=== PATIENT | male | born 1965 | race Caucasian/White ===

== ENCOUNTER 2016-06-29 05:13 | Inpatient (IN) | payer OTHER ==
[2016-06-06 11:50] VITALS: BMI 42.0
--- NOTE | 2016-06-06 12:18 | PAT Medication Instructions ---
Service Date Jun 06, 2016. Current Home Medication List Allopurinol (Zyloprim), 300 MG PO HS Amlodipine/Benazepril (Lotrel 5MG/20MG), 2 CAP PO QAM Calcium Carbonate (Tums), 2 TAB PO UD PRN for Indigestion Hydrochlorothiazide (Hctz), 50 MG PO QAM Hydrocodone/Acetaminophen 5MG/325MG ([place] 5MG/325MG), 1 TABLET PO Q4 PRN for Pain Multivitamin (Multivitamin), 1 TAB PO QAM Pravastatin (Pravachol ), 20 MG PO HS Medication Instructions For Your Scheduled Surgery - Hold the following medications the morning of surgery: Calcium Carbonate (Tums), 2 TAB PO UD PRN for Indigestion Amlodipine/Benazepril (Lotrel 5MG/20MG), 2 CAP PO QAM Multivitamin (Multivitamin), 1 TAB PO QAM Hydrochlorothiazide (Hctz), 50 MG PO QAM - Take the following medications the morning of surgery with a sip of water OTHERWISE NOTHING TO EAT OR DRINK AFTER MIDNIGHT: Hydrocodone/Acetaminophen 5MG/325MG ([place] 5MG/325MG), 1 TABLET PO Q4 PRN for Pain (may take if needed up to 4 hours prior to surgery) - Take the following medications as scheduled the night before surgery: Pravastatin (Pravachol ), 20 MG PO HS Allopurinol (Zyloprim), 300 MG PO HS If you have any questions please call us at [phone] (Natasha Nguyen PA-C ) or [phone] or [phone]
[2016-06-06 12:39] LABS: URINE APPEARANCE CLEAR (CLEAR); URINE BILIRUBIN NEG (NEG); URINE COLOR YELLOW; URINE NITRITE NEG (NEG); URINE PH 7.5 (4.5-7.5); URINE SPECIFIC GRAVITY 1.008 (1.000-1.030); UROBILINOGEN NEG (NEG)
[2016-06-06 12:39] LABS: BASO % 2.1 %; BASO ABS # 0.15 K/uL (0-0.2); COMPLETE YES; EOS % 5.1 %; HEMATOCRIT 44.9 % (42-52); LYMPH % 42.2 %; LYMPH ABS # 2.98 K/uL (1.2-3.4); MEAN CELL VOLUME 83.9 fL (80-100); MEAN CORPUSCULAR HEMOGLOBIN 31.6 pg (25-34); MEAN CORPUSCULAR HGB CONC 37.6 g/dl (32-36); MEAN PLATELET VOLUME 10.1 fL (7.4-10.4); MONO % 7.4 %; NEUT % 43.2 %; PLATELET COUNT 186 K/uL (130-400); RED BLOOD COUNT 5.35 M/uL (4.7-6.1); WHITE BLOOD COUNT 7.06 K/uL (4.8-10.8)
[2016-06-06 12:50] LABS: MANUAL MICROSCOPIC REQUIRED? NO; REVIEW REQ? NO
--- NOTE | 2016-06-06 13:09 | DIAGNOSTIC IMAGING REPORT ---
CHEST PREADMISSION(PA/LAT) HISTORY: Preop. COMPARISON: None. FINDINGS: No pleural effusions. No pneumothorax. The right lung is clear. The heart is top normal in size. There are low lung volumes. A few small linear densities at the left lung base favor subsegmental atelectasis or scarring. Otherwise, the left lung is clear. IMPRESSION: No acute process. Electronically signed by: Dao Lama M.D. 06/06/2016 1:08 PM
[2016-06-06 13:20] LABS: BUN/CREATININE RATIO 12.3 (10-20); POTASSIUM 3.2 mmol/L (3.5-5.1)
[2016-06-06 13:27] LABS: CALCIUM 9.9 mg/dl (8.5-10.1)
--- NOTE | 2016-06-23 09:29 | HISTORY & PHYSICAL EXAMINATION ---
DATE OF ADMISSION: 06/29/2016 The patient presents to our office with complaint of left leg pain including buttock pain. He states this stems from an incident in December of 2015. He has been working on restricted duty since. Takes Vicodin for pain control. Symptoms are reproduced with prolonged activity, such as standing and walking. He states modest activity such as doing the dishes will also reproduces his symptoms. He has numbness extending to the lesser toes on the left. Right leg is asymptomatic. Denies bowel or bladder dysfunction. MEDICAL HISTORY: Significant for gout, hyperlipidemia, hypertension, and liver disease. SURGICAL HISTORY: Significant for cholecystectomy, hernia repair and microdiscectomy of June 2005. ALLERGIES: INCLUDE DARVOCET. MEDICATIONS: Currently include Vicodin 5/325 one or two tablets a day, hydrochlorothiazide 50 mg a day, Norvasc 5 mg two tablets a day, benazepril 20 mg twice a day, Pravastatin 40 mg a day, allopurinol 300 mg a day, cyclobenzaprine 5 mg p.r.n., and multivitamin. SOCIAL HISTORY: The patient is . Denies alcohol. Former smoker, quit in 2008, used to smoke a pack and half prior to this. 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 FAMILY HISTORY: Significant for hypertension and high cholesterol. REVIEW OF SYSTEMS: Significant for weight gain, difficulty walking. PHYSICAL EXAMINATION: VITAL SIGNS: 5 foot 10, 290 pounds. HEENT: Speech appropriate. CARDIOPULMONARY: No gross abnormalities. ABDOMEN: Soft, nondistended. GENITOURINARY: Deferred. NEUROLOGIC: Cranial nerves II-XII grossly intact. MUSCULOSKELETAL: He has a well-healed lumbar incision. He is tender to palpation over the left sciatic notch. Strength is intact bilateral lower extremities. Sensation is intact bilaterally. ASSESSMENT: Retrolisthesis of L5-S1. Disc space collapse at L5-S1. PLAN: At this point in time, he has tried and failed conservative therapy. May consider surgical intervention which would require revision decompression, fusion L5-S1. Risks, benefits, pros, cons, and alternatives were outlined in detail. The patient would like to proceed with the above-mentioned surgical intervention.
[2016-06-29] VITALS (10 sets, daily range): BP systolic 117–170; BP diastolic 73–83; PULSE 90–113; TEMP 36.5–37.1; O2SAT 92–96; Ht 177.8 cm; Wt 133.4 kg
[~2016-06-29] VITALS: Ht 177.8 cm; Wt 133.4 kg
[~2016-06-29 05:13] MED LIST: ALLO300T2 PO; AMLO5CAP2 PO; CALC500C3 PO; HYDR-5688 PO; HYDR50TA3 PO; MULT-506 PO; PRAV20TA PO
[2016-06-29] MEDS ORDERED: SCOPOLAMINE 1.5 MG TDSY TD SCH (06:00)
[2016-06-29] MEDS ORDERED: LACTATED RINGER'S 1000ML IV SCH (06:00)
[2016-06-29] MEDS ORDERED: CEFAZOLIN 3000 MG/65 ML D5W 65 ML IV SCH (06:00)
[2016-06-29] MEDS ORDERED: PROPOFOL IV EMULSION 10 MG/ML 20 ML VIAL IV ONE ×2 (06:49→09:20)
[2016-06-29] MEDS ORDERED: ONDANSETRON INJ 2 MG/ML 2 ML VIAL ONE (06:49)
[2016-06-29] MEDS ORDERED: DEXAMETHASONE SOD INJ 4 MG/ML VIAL ONE (06:49)
[2016-06-29] MEDS ORDERED: LIDOCAINE HCL 2% 2 ML VIAL (20MG/ML) ONE (06:49)
[2016-06-29] MEDS ORDERED: FENTANYL CITRATE INJ 50 MCG/1 ML 2 ML VIAL ONE (06:49)
[2016-06-29] MEDS ORDERED: MIDAZOLAM HCL 1 MG/ML 2ML VIAL ONE (06:49)
[2016-06-29] MEDS ORDERED: NEOSTIGMINE METHYLSULFATE 1 MG/ML 10ML VIAL ONE (06:49)
[2016-06-29] MEDS ORDERED: GLYCOPYRROLATE INJ 0.2 MG/ML VIAL ONE (06:49)
[2016-06-29] MEDS ORDERED: ROCURONIUM BROMIDE 10 MG/ML 5 ML VIAL ONE ×2 (06:49→08:43)
[2016-06-29] MEDS: POTASSIUM CHLR 10MEQ / WTR IV SCH ×2 (07:23→08:30)
[2016-06-29] MEDS ORDERED: EpHEDrine SULFATE INJ 50 MG/ML AMP IV PRN (07:30)
[2016-06-29] MEDS ORDERED: ATROPINE SULFATE 0.1 MG/ML 5ML SYR IV PRN (07:30)
[2016-06-29] MEDS ORDERED: ONDANSETRON INJ 2 MG/ML 2 ML VIAL IV PRN ×2 (07:30→09:45)
[2016-06-29] MEDS ORDERED: HYDROmorphone INJ 2 MG/ML SYR/VIAL IV PRN (07:30)
[2016-06-29] MEDS ORDERED: PHENYLEPHRINE 100MCG/ML 5ML SYR IV PRN (07:30)
--- NOTE | 2016-06-29 07:35 | History & Physical Bridge Note ---
H&P Re-Evaluation Bridge Note: I have examined the patient, reviewed the History & Physical and in the interval since the performance of the History & Physical I have noted the following changes of clinical significance: No changes noted
[2016-06-29] MEDS ORDERED: HYDROmorphone INJ 2 MG/ML SYR/VIAL ONE (08:04)
[2016-06-29] MEDS ORDERED: PHENYLEPHRINE 100MCG/ML 5ML SYR ONE (08:43)
[2016-06-29] MEDS ORDERED: EpHEDrine SULFATE 50MG/5ML SYR ONE (08:43)
[2016-06-29] MEDS ORDERED: BISACODYL 10 MG SUPP PR PRN (09:00)
[2016-06-29] MEDS ORDERED: FAMOTIDINE 20 MG TAB PO PRN (09:00)
[2016-06-29] MEDS ORDERED: MAGNESIUM HYDROXIDE SUSP 30 ML UDC PO PRN (09:00)
[2016-06-29] MEDS ORDERED: BUPIVACAINE/EPINEPHRINE 0.5% MPF 1:200,000 30 ML VIAL INJ ONE (09:42)
[2016-06-29] MEDS ORDERED: FLOSEAL HEMOSTATIC MATRIX 10ML TOP ONE (09:42)
[2016-06-29] MEDS ORDERED: BACITRACIN 50000 UNIT VIAL IR ONE (09:42)
[2016-06-29] MEDS ORDERED: ESMOLOL HCL 10 MG/ML 10 ML VIAL ONE (09:44)
[2016-06-29] MEDS ORDERED: SODIUM CHLORIDE 0.9% 1000ML 1,000 ML IV SCH (09:44)
--- NOTE | 2016-06-29 09:44 | [facility] Post Operative Brief Note ---
Immediate Operative Summary Operative Date Jun 29, 2016. Pre-Operative Diagnosis Retrolisthesis of L5-S1 Disc Space Collapse at L5-S1 Post-Operative Diagnosis Retrolisthesis of L5-S1 Disc Space Collapse at L5-S1 Procedure(s) Performed L5-S1 Lumbar Laminectomy, Decompression; Pedicle Screw Fixation; Placement of Interbody Device, Posterolateral Fusion; Application of Allograft; Bone Morphogenetic Protein; Iliac [place] Fixation Surgeon Dr. Joe Murphy Manager Environmental Health And Safety Surgeon(s) Bridgett Wyatt PA-C Estimated Blood Loss 250 Findings stenosis Specimens None per surgeon
[2016-06-29] MEDS ORDERED: DO NOT ADMINISTER FLU VACCINE PRN ×3 (09:45)
[2016-06-29] MEDS ORDERED: LORAZEPAM INJ 0.5 MG in SYRINGE 0 ML IV PRN (09:45)
[2016-06-29] MEDS ORDERED: LORAZEPAM 0.5 MG TAB PO PRN (09:45)
[2016-06-29] MEDS ORDERED: hydrOXYzine HCL 25 MG TAB PO PRN (09:45)
[2016-06-29] MEDS ORDERED: DO NOT ADMINISTER PNEUMOCOCCAL VACCINE PRN ×2 (09:45)
[2016-06-29] MEDS ORDERED: METOCLOPRAMIDE HCL INJ 5 MG/ML 2 ML VIAL IV PRN (09:45)
[2016-06-29] MEDS ORDERED: ACETAMINOPHEN 500 MG TAB PO PRN (09:45)
[2016-06-29] MEDS ORDERED: ALUMINUM/MAGNESIUM SUSP 30 ML UDC PO PRN (09:45)
[2016-06-29] MEDS ORDERED: ACETAMINOPHEN IV 100 ML IV PRN (09:45)
[2016-06-29] MEDS ORDERED: HYDROmorphone INJ 0.5 MG/0.5 ML SYR IV PRN (09:45)
[2016-06-29] MEDS ORDERED: SOD PHOSPHATE/SOD BIPHOSPHATE ENEMA 132 ML BTL PR PRN (09:45)
[2016-06-29] MEDS ORDERED: DC PCA PRN (09:45)
[2016-06-29] MEDS ORDERED: NALOXONE HCL 0.4 MG/1 ML VIAL/CARP IV PRN ×2 (09:45)
[2016-06-29] MEDS ORDERED: PROMETHAZINE HCL INJ 12.5 MG in SODIUM CHLORIDE 0.9% 50ML 50 ML IV PRN (09:45)
--- NOTE | 2016-06-29 10:01 | DIAGNOSTIC IMAGING REPORT ---
INTRAOPERATIVE RADIOGRAPHS CLINICAL HISTORY: L5-S1 spinal fusion. Fluoroscopy time: 28 seconds. FINDINGS: 2 spot fluoroscopic views of the lower lumbar spine are presented. There has been discectomy at L5-S1 with laminectomy and posterior fusion at this level. Interpedicular screws are present at both levels. The orthopedic hardware appears intact. IMPRESSION: Intraoperative images from L5 to S1 spinal fusion as above. Electronically signed by: Francisco Javier Hill M.D. 06/29/2016 9:59 AM Dictated Date/Time: 06/29/2016 9:58 AM
--- NOTE | 2016-06-29 10:02 | OPERATIVE REPORT ---
DATE OF OPERATION: 06/29/2016 PREOPERATIVE DIAGNOSIS: Spinal stenosis. POSTOPERATIVE DIAGNOSIS: Same. PROCEDURE PERFORMED: 1. Revision decompression, medial facetectomy and foraminotomy L5-S1. 2. Posterior spinal fusion L5-S1. 3. Placement posterior instrumentation using Orthros rods and screws, L5-S1. 4. Interbody fusion L5-S1. 5. Placement of PEEK cage 12 x 26 mm at L5-S1. 6. Placement of locally harvested morcellized autograft in posterior gutters. 7. Placement of Infuse collagen sponge combined with Mastergraft in the posterior gutters and Mandy bone grafting in the interbody space. SURGEON: Dr. Joe Murphy. COMPUTER EDUCATION TEACHER: Bridgett Brown PA-C. Due to the complex nature of the procedure, the entire surgery was performed with the creative assistant of Bridgett Brown PA-C. The assistant service manager, under direct supervision, was involved in the actual performance of all aspects of the surgical procedure including hemostasis, tissue retraction and incision, instrument management, patient positioning, and wound closure. ANESTHESIA: General. DISPOSITION: The patient awakened and taken to PACU in stable condition. HISTORY OF PATIENT'S PROBLEMS: This is a 51-year-old male who presents with above-mentioned diagnosis. After failing an extensive course of nonoperative care, elected to undergo the above-mentioned procedure. Risks, benefits, pros, cons, and alternatives were outlined in detail preoperatively. OPERATION AND FINDINGS: PROCEDURE: The patient was met with preoperatively, case discussed and all questions were addressed. At that point the patient was taken back to operative suite and after undergoing successful general intubation via department of anesthesia was placed in prone position on Kt table atop a Darren frame. All bony prominences were padded and the eyes were inspected to ensure there was no external pressure placed upon them. At this point, lumbar spine was prepped and draped in normal sterile fashion. Sharp dissection with the assistance of Bovie cautery was performed down to and exposing the remaining lamina and transverse processes of L5 and sacral ala bilaterally. From a caudal to cephalad fashion, a revision complete laminectomy of L5 was performed including medial facetectomies and foraminotomies addressing severe stenosis on the left as well as marked scarring traversing and exiting nerve roots from the previous decompression. Pedicle screws were then placed in L5 and S1 levels bilaterally with assistance of fluoroscopy and appropriate size alea provisionally placed. Through transforaminal approach on the left, a complete discectomy of L5-S1 was performed, endplates curetted to subcortical bleeding bone and a 12 x 26 mm PEEK cage filled with Mandy bone grafting tapped into position. Rods were then compressed, locked into final position bilaterally and transverse processes of L5 and sacral ala burred to subcortical bone. Infuse collagen sponge combined with Mastergraft and locally harvested morselized autograft was placed in the posterior gutters. A 7 flat BRE drain was inserted. Incision was closed with 1-0 Vicryl in the fascia, 2-0 Vicryl subcutaneously, 4-0 Monocryl for final skin closure. Steri-Strips and sterile dressing placed. The patient was awakened and taken to PACU in stable condition. I attest to the content of the Intraoperative Record and any orders documented therein. Any exceptio ns are noted below.
[2016-06-29] MEDS ORDERED: HYDROmorphone HCL 0.5MG/ML 50 ML CASSETTE ONE (10:14)
[2016-06-29] MEDS ORDERED: CEFAZOLIN SOD 1 GM VIAL ONE (10:50)
--- NOTE | 2016-06-29 11:16 | Anesthesiology Progress Note ---
Anesthesia Post Op Note Date & Time Jun 29, 2016 at 11:13 Vital Signs Pain Intensity: 0 Vital Signs Past 12 Hours Date Time Temp Pulse Resp B/P Pulse Ox O2 Delivery O2 Flow Rate FiO2 06/29/16 11:00 37.0 97 14 137/71 93 Nasal Cannula 4 06/29/16 10:50 99 12 145/80 93 Nasal Cannula 4 06/29/16 10:40 100 12 159/73 92 Nasal Cannula 4 06/29/16 10:30 115 14 159/86 98 Mask 10 06/29/16 10:20 73 12 132/67 98 Mask 10 06/29/16 10:12 36.8 104 14 183/112 98 Mask 10 06/29/16 05:38 37.1 90 18 170/83 96 Room Air Notes Mental Status: alert / awake / arousable, participated in evaluation Pt Amnestic to Procedure: Yes Nausea / Vomiting: adequately controlled Pain: adequately controlled Airway Patency, RR, SpO2: stable & adequate BP & HR: stable & adequate Hydration State: stable & adequate Anesthetic Complications: no major complications apparent The patient had a short run of atrial bigeminy which resolved spontaneously.
[2016-06-29] MEDS: LACTATED RINGER'S 1000ML 1,000 ML IV SCH ×2 (12:33→18:54)
[2016-06-29] MEDS ORDERED: NURSING VERBAL MED ORDER ONE (12:45)
[2016-06-29] MEDS: HYDROmorphone HCL 0.5MG/ML 50 ML CASSETTE IV PRN ×2 (14:55→22:54)
[2016-06-29] MEDS: CHECK SCOPOLAMINE PATCH PLACEMENT SCH (16:00)
[2016-06-29] MEDS: CEFAZOLIN IV 3,000 MG in DEXTROSE 5% 50ML 50 ML IV SCH (16:58)
[2016-06-29] MEDS: DEXAMETHASONE INJ 6 MG in SYRINGE 0 ML IV SCH (16:59)
[2016-06-29] MEDS: DOCUSATE SODIUM/SENNA 50/8.6MG TAB PO SCH (20:38)
[2016-06-29] MEDS: PRAVASTATIN SOD 20 MG TAB PO SCH (20:38)
[2016-06-29] MEDS: ALLOPURINOL 300 MG TAB PO SCH (20:38)
[2016-06-30] VITALS (7 sets, daily range): BP systolic 118–151; BP diastolic 72–83; PULSE 61–99; TEMP 36.5–37.1; O2SAT 93–97
[2016-06-30] MEDS: CHECK SCOPOLAMINE PATCH PLACEMENT SCH ×3 (00:11→16:23)
[2016-06-30] MEDS: DEXAMETHASONE INJ 6 MG in SYRINGE 0 ML IV SCH ×2 (00:11→07:33)
[2016-06-30] MEDS: CEFAZOLIN IV 3,000 MG in DEXTROSE 5% 50ML 50 ML IV SCH (00:11)
[2016-06-30] MEDS: LACTATED RINGER'S 1000ML 1,000 ML IV SCH ×2 (01:25→08:19)
[2016-06-30 05:48] LABS: COMPLETE YES; IG% 0.1 %; LYMPH % 12.9 %; MEAN CELL VOLUME 83.9 fL (80-100); MEAN CORPUSCULAR HEMOGLOBIN 31.1 pg (25-34); MEAN CORPUSCULAR HGB CONC 37.1 g/dl (32-36); MEAN PLATELET VOLUME 10.1 fL (7.4-10.4); MONO % 5.8 %; NEUT % 81.2 %; PLATELET COUNT 180 K/uL (130-400); RED BLOOD COUNT 4.53 M/uL (4.7-6.1); WHITE BLOOD COUNT 10.05 K/uL (4.8-10.8)
[2016-06-30 06:20] LABS: BUN/CREATININE RATIO 14.1 (10-20); CALCIUM 8.9 mg/dl (8.5-10.1); POTASSIUM 3.7 mmol/L (3.5-5.1)
[2016-06-30] MEDS ORDERED: NURSING VERBAL MED ORDER ONE ×2 (07:15→08:30)
[2016-06-30] MEDS: OXYCODONE HCL IR 5 MG TAB (IMMEDIATE RELEASE) PO PRN ×2 (07:24→13:11)
--- NOTE | 2016-06-30 07:48 | Anesthesiology Progress Note ---
Anesthesia Post Op Note Date & Time Jun 30, 2016 at 07:47 Vital Signs Pain Intensity: 5.0 Vital Signs Past 12 Hours Date Time Temp Pulse Resp B/P Pulse Ox O2 Delivery O2 Flow Rate FiO2 06/30/16 07:41 37.1 99 16 151/78 95 Nasal Cannula 4.0 06/30/16 03:34 36.9 95 18 136/83 97 Nasal Cannula 2.0 06/29/16 23:45 93 Nasal Cannula 4.0 06/29/16 23:39 36.7 103 18 123/78 94 Nasal Cannula 2.0 Notes Mental Status: alert / awake / arousable, participated in evaluation Pt Amnestic to Procedure: Yes Nausea / Vomiting: adequately controlled Pain: adequately controlled Airway Patency, RR, SpO2: stable & adequate BP & HR: stable & adequate Hydration State: stable & adequate Anesthetic Complications: no major complications apparent
[2016-06-30] MEDS ORDERED: KETOROLAC TROMETHAMINE 30 MG/ML VIAL IV PRN (08:30)
--- NOTE | 2016-06-30 08:35 | PROGRESS NOTE ---
DATE: 06/30/2016 Postop day 1. Back pain is controlled. Leg pain improved. Vital signs stable. T max 37.1. BRE drained 90 mL. Hematocrit this a.m. is 38.0. PHYSICAL EXAMINATION: The patient is sitting in bed, has good strength to testing, appears comfortable. ASSESSMENT: Status post lumbar decompression and fusion. PLAN: At this time, will initiate physical therapy, advance his bowel regimen and anticipate home tomorrow.
[2016-06-30] MEDS: BENAZEPRIL HCL 10 MG TAB PO SCH (08:42)
[2016-06-30] MEDS: HYDROCHLOROTHIAZIDE 50 MG TAB PO SCH (08:43)
[2016-06-30] MEDS: AMLODIPINE BESYLATE 5 MG TAB PO SCH (08:43)
[2016-06-30] MEDS ORDERED: BENAZEPRIL PO SCH (09:00)
[2016-06-30] MEDS ORDERED: AMLODIPINE PO SCH (09:00)
[2016-06-30] MEDS: PRAVASTATIN SOD 20 MG TAB PO SCH (20:56)
[2016-06-30] MEDS: DOCUSATE SODIUM/SENNA 50/8.6MG TAB PO SCH (20:57)
[2016-06-30] MEDS: ALLOPURINOL 300 MG TAB PO SCH (20:57)
[2016-07-01] MEDS: CHECK SCOPOLAMINE PATCH PLACEMENT SCH
[2016-07-01] MEDS: POLYETHYLENE (MIRALAX) 17 GM PACK PO SCH ×2 (05:25→12:00)
[2016-07-01 06:39] VITALS: BP 125/77; PULSE 71; TEMP 36.7; O2SAT 96
[2016-07-01 06:40] VITALS: BP 138/75; PULSE 58; TEMP 36.7; O2SAT 97
[2016-07-01] MEDS: AMLODIPINE BESYLATE 5 MG TAB PO SCH (07:22)
[2016-07-01] MEDS: OXYCODONE HCL IR 5 MG TAB (IMMEDIATE RELEASE) PO PRN ×3 (07:22→13:25)
[2016-07-01] MEDS: HYDROCHLOROTHIAZIDE 50 MG TAB PO SCH (07:23)
[2016-07-01] MEDS: BENAZEPRIL HCL 10 MG TAB PO SCH (07:23)
[2016-07-01] MEDS ORDERED: RXC5 PO (07:46)
[2016-07-01] MEDS ORDERED: ATV5 PO (07:46)
--- NOTE | 2016-07-01 07:47 | Discharge Instructions ---
Discharge Instructions Admission Reason for Admission: Lumbar Spinal Stenosis Discharge Discharge Diagnosis / Problem: stenosis Discharge Goals Goal(s): Improve function Activity Recommendations Activity Limitations: per Instructions/Follow-up section . Instructions / Follow-Up Instructions / Follow-Up ACTIVITY RECOMMENDATIONS: SELF CARE INSTRUCTIONS AFTER THORACIC/LUMBAR FUSIONS 1. You may walk to your tolerance. It is good exercise for your legs and back. Expect some back and intermittent leg aches and pains. 2. You may perform "counter-top" level activities (make a sandwich, mame with a project, etc.). 3. No bending or lifting of more than 10 pounds or back twisting of any nature (roll like a log when turning in bed). 4. You may ride in a car for 20-30 minutes at a time. No driving until after your first visit with your doctor. 5. Frequent changes of position and restricting sitting to 30 minutes at a time will help limit the amount of back spasms and stiffness you may experience. 6. You may discontinue the use of ambulatory aids (cane, crutches, etc.) once your strength and confidence allow. 7. You may automotive airconditioning mechanic the shower and let water strike your incision when you arrive home at least once daily. Do not take a tub bath, sit in a hot tub or go into a swimming pool until after your first recheck in the office. SPECIAL CARE INSTRUCTIONS: VERY IMPORTANT TO READ AND REVIEW A. Your surgical incision has been closed with a cosmetic suture under the skin that will dissolve in about 6 weeks. In 14 days, you can use a pair of clean scissors and cut the suture that is left outside of the skin at the ends of your incision. 1. The small skin tapes can be removed 7 days after surgery if they have not fallen off by that point. 2. You may keep the wound open to air as much as possible to promote healing after post-op day number 5 unless told otherwise by your doctor. 3. If you think the wound looks like it is becoming infected (redness or worsening drainage) and/or you are experiencing fever, chill or worsening back pain and muscle spasms, contact the office so that we may evaluate you as soon as possible. B. Complications are uncommon, but please contact us if you have any signs or symptoms of: 1. wound infection (fever higher than 102.5 degrees F, redness, separation of wound, drainage, or increasing pain from the incision) 2. blood clots in legs (pain, swelling, redness and warmth in legs) 3. urinary tract infection (fever higher than 102.5 degrees F, burning upon urination or increased frequency of urination) 4. nerve problems (inability to walk on your toes or heels, numbness, loss of bowel or bladder control) 5. any other symptoms that concern you C. Please call the office at if you have any concerns or questions about your operation or recovery. D. No smoking! Smoking drastically decreases the chance of a solid fusion. E. Do not take any anti-inflammatory medications (Indocin, Advil, Motrin, Aspirin, Naprosyn, etc.) as these may inhibit the chance of a solid fusion. Tylenol is okay to take for pain. MANAGING PAIN AFTER SPINAL SURGERY 1. Narcotic medication is intended for short-term use and will be provided for surgical pain. Surgical pain usually lasts for a period of 4-6 weeks. Narcotic medication includes Percocet, Vicodin, Darvocet, Tylenol #3 or Lortab. 2. Longer-term pain is more appropriately treated with non-narcotic medication such as Tylenol ES. 3. Muscle spasm is not appropriately treated with narcotics. Muscle relaxers such as Soma, Flexeril or Skelaxin can be used along with Tylenol ES. 4. Remember that we all live with some "aches and pains". This is not unusual or uncommon after an injury or as we get older. a. Back pain is expected and may include muscle spasms for 4 to 6 weeks after surgery. The pain should gradually improve. If the pain worsens for no apparent reason, please contact the office. b. Intermittent leg pain may also be experienced and should not be concerned about unless it worsens for no apparent reason. If so, please contact the office. 5. We will provide appropriate medication within the normal guidelines of their prescribed use. We will also be very cautious and aware of potential abuse and extended duration of patients' medication needs. a. Pain medications are for your comfort and to assist with sleep and rest so that the tissue can heal. They are not provided in order to return to normal activity and should not be used through the day. To do so or worsening pain at night can result from ongoing tissue damage and development of tolerance to the prescribed medicine. 6. Please allow 2-3 days to process refills. Prescriptions will not be mailed but must be picked up at the office. FOLLOW UP VISIT: Keep your scheduled follow-up appointment. Any questions, please call the office at . Current Hospital Diet Patient's current hospital diet: Regular Diet Discharge Diet Recommended Diet: Regular Diet Procedures Procedures Performed: L5-S1 Lumbar Laminectomy, Decompression; Pedicle Screw Fixation; Placement of Interbody Device, Posterolateral Fusion; Application of Mandy Allograft; Bone Morphogenetic Protein; Iliac [place] Fixation Pending Studies Studies pending at discharge: no Medical Emergencies . Who to Call and When: Medical Emergencies: If at any time you feel your situation is an emergency, please call 911 immediately. . Non-Emergent Contact Non-Emergency issues call your: Primary Care Provider . "Provider Documentation" section prepared by Joe Murphy. VTE Core Measure Inpt VTE Proph given/why not?: Jeri Sommer, [facility]
[2016-07-01 13:31] VITALS: BP 138/75; PULSE 58; TEMP 36.7; O2SAT 97
--- NOTE | 2016-07-01 13:39 | DISCHARGE SUMMARY ---
PRINCIPAL DIAGNOSIS: Spinal stenosis. HOSPITAL COURSE FOLLOWS: On June 29 the patient underwent lumbar decompression and fusion, tolerated this well and taken to the orthopedic floor postoperatively. Postop day #1, he was up and ambulatory, progressed well. Subsequently, on postop day #2, pain controlled. Leg pain, doing well. Subsequently discharged home. Discharge orders and instructions found on the chart for further review.
== END 2016-07-01 13:59 | disposition home or self-care (01) | DRG 460 ==
LOC: ENRESERVDT → ENRESERVTM → C.ACU 05:13 → C.3E 07:30
PROVIDERS: ADMIT Orthopaedic Surgery Orthopaedic Surgery of the Spine; ATTEND Orthopaedic Surgery Orthopaedic Surgery of the Spine
PROC: 0SG30AJ Fusion of Lumbosacral Joint with Interbody Fusion Device, Posterior Approach, Anterior Column, Open Approach (ICD-10-PCS; principal; 2016-06-29 07:30)
PROC: 0SB40ZZ Excision of Lumbosacral Disc, Open Approach (ICD-10-PCS; principal; 2016-06-29 07:30)
PROC: 3E0V0GB Introduction of Recombinant Bone Morphogenetic Protein into Bones, Open Approach (ICD-10-PCS; principal; 2016-06-29 07:30)
PROC: 0SG00AJ Fusion of Lumbar Vertebral Joint with Interbody Fusion Device, Posterior Approach, Anterior Column, Open Approach (ICD-10-PCS; principal; 2016-06-29 07:30)
PROC: 0SG3071 Fusion of Lumbosacral Joint with Autologous Tissue Substitute, Posterior Approach, Posterior Column, Open Approach (ICD-10-PCS; principal; 2016-06-29 07:30)
PROC: 0SG0071 Fusion of Lumbar Vertebral Joint with Autologous Tissue Substitute, Posterior Approach, Posterior Column, Open Approach (ICD-10-PCS; principal; 2016-06-29 07:30)
DX: M51.27 Other intervertebral disc displacement, lumbosacral region (principal); M48.07 Spinal stenosis, lumbosacral region; M10.9 Gout, unspecified; E78.5 Hyperlipidemia, unspecified; K76.9 Liver disease, unspecified; I10 Essential (primary) hypertension; Z87.891 Personal history of nicotine dependence; Z90.49 Acquired absence of other specified parts of digestive tract; Z79.899 Other long term (current) drug therapy